=== PATIENT | female | born 1960 | race Caucasian/White ===

== ENCOUNTER 2017-10-09 16:14 | Outpatient (CLI) | payer OTHER | END 2017-10-09 16:15 | disposition short-term general hospital (02) | LOC: EMS 16:14 | PROVIDERS: ATTEND Surgery | DX: M54.9 Dorsalgia, unspecified (principal); R07.81 Pleurodynia | CPT/HCPCS: A0425; A0429 ==

== ENCOUNTER 2017-10-31 20:41 | Outpatient (CLI) | payer OTHER | END 2017-10-31 20:42 | disposition critical access hospital (66) | LOC: EMS 20:41 | PROVIDERS: ATTEND Surgery | DX: R40.4 Transient alteration of awareness (principal) | CPT/HCPCS: A0425; A0427 ==

== ENCOUNTER 2017-10-31 20:56 | Emergency (ER) | payer OTHER ==
[2017-10-31 21:23] LABS: BASOPHILS # (AUTO) 0.1 10^3/uL (0.0-0.1); BASOPHILS % (AUTO) 0.5 %; EOSINOPHILS # (AUTO) 0.1 10^3/uL (0.0-0.7); EOSINOPHILS % (AUTO) 1.1 %; HGB - HEMOGLOBIN 13.9 g/dL (12.0-16.0); LYMPHOCYTES # (AUTO) 3.3 10^3/uL (1.5-3.5); LYMPHOCYTES % (AUTO) 32.6 %; MEAN CORPUSCULAR HEMOGLOBIN 32.8 pg (27.0-31.0); MEAN CORPUSCULAR HGB CONC 34.6 g/dL (32.0-36.0); MEAN CORPUSCULAR VOLUME 94.6 fL (81.0-99.0); MONOCYTES # (AUTO) 0.9 10^3/uL (0.0-1.0); MONOCYTES % (AUTO) 9.2 %; NEUTROPHILS # (AUTO) 5.7 10^3/uL (1.5-6.6); NEUTROPHILS % (AUTO) 56.6 %; PLT - PLATELET COUNT 236 10^3/uL (130-450); RED BLOOD COUNT 4.23 10^6/uL (4.20-5.40); WHITE BLOOD COUNT 10.1 x10^3/uL (4.8-10.8)
[2017-10-31 21:27] LABS: PT - PROTHROMBIN TIME 10.8 secs (9.9-12.6)
[2017-10-31 21:37] LABS: ALBUMIN 3.7 g/dL (3.2-5.5); ALBUMIN/GLOBULIN RATIO 1.2 (1.0-2.2); ALKALINE PHOSPHATASE 84 IU/L (42-121); ALT ALANINE AMINOTRANSFERASE 55 IU/L (10-60); AST ASPARTATE AMINOTRANSFERASE 51 IU/L (10-42); BILIRUBIN,TOTAL 0.5 mg/dL (0.2-1.0); BUN - BLOOD UREA NITROGEN 12 mg/dL (6-20); CALCIUM 8.9 mg/dL (8.5-10.3); CARBON DIOXIDE - CO2 27 mmol/L (21-32); CHLORIDE 100 mmol/L (101-111); CK- CREATINE KINASE 575 IU/L (22-269); CREATININE 0.7 mg/dL (0.4-1.0); GFR - MDRD 87 (>89); GLUCOSE 116 mg/dL (70-100); LIPASE 39 U/L (22-51); SALICYLATE < 6.0 mg/dL; SODIUM 136 mmol/L (135-145); TOTAL PROTEIN 6.7 g/dL (6.7-8.2)
--- NOTE | 2017-10-31 21:38 | CT Report ---
EXAM: CT HEAD EXAM DATE: 10/31/2017 09:27 PM. CLINICAL HISTORY: Altered mental status. COMPARISON: None. TECHNIQUE: Multiaxial CT images were obtained from the foramen magnum to the vertex. Reformats: Coron al. IV contrast: None. In accordance with CT protocol optimization, one or more of the following dose reduction techniques w ere utilized for this exam: automated exposure control, adjustment of mA and/or KV based on patient s ize, or use of iterative reconstructive technique. FINDINGS: Parenchyma: No intraparenchymal hemorrhage. No evidence of mass, midline shift, or CT findings of inf arction. Cross-white differentiation is distinct. Extraaxial Spaces: Normal for age. No subdural or epidural collections identified. Ventricles: Normal in size and position. Sinuses and Orbits: Imaged paranasal sinuses, orbits, and mastoids show no significant abnormality. Bones: No evidence of fracture or calvarial defect. Other: None. IMPRESSION: Normal head CT. [facility] Referring Provider Line: [phone] SITE ID: [id number]
[2017-10-31] MEDS ORDERED: SODIUM CHLORIDE 0.9% 1,000 ML IV ONE (21:50)
[2017-10-31 21:53] LABS: BILIRUBIN,URINE NEGATIVE (NEGATIVE); GLUCOSE, URINE (UA) NEGATIVE (NEGATIVE); KETONES,URINE (UA) NEGATIVE (NEGATIVE); LEUKOCYTE ESTERASE, URINE NEGATIVE (NEGATIVE); NITRITE,URINE NEGATIVE (NEGATIVE); OCCULT BLOOD,URINE NEGATIVE (NEGATIVE); PROTEIN,URINE NEGATIVE (NEGATIVE); UROBILINOGEN,URINE 0.2 (NORMAL) E.U./dL (NORMAL)
[2017-10-31 21:55] LABS: CLARITY,URINE CLEAR (CLEAR)
[2017-10-31 21:57] LABS: MUDS CUTOFF CONCENTRATIONS CUTOFF CONC BELOW:
[2017-10-31 22:17] LABS: AMPHETAMINE SCREEN,URINE NEGATIVE (NEGATIVE); BENZODIAZEPINES SCREEN, URINE POSITIVE (NEGATIVE); COCAINE SCREEN URINE NEGATIVE (NEGATIVE); METHADONE SCREEN, URINE NEGATIVE (NEGATIVE); METHAMPHETAMINES SCREEN, URINE NEGATIVE (NEGATIVE); OPIATE SCREEN, URINE NEGATIVE (NEGATIVE); OXYCODONE SCREEN, URINE NEGATIVE (NEGATIVE); PROPOXYPHENE SCREEN, URINE NEGATIVE (NEGATIVE); TRICYCLIC ANTIDEPRESSANT,URINE NEGATIVE (NEGATIVE)
--- NOTE | 2017-10-31 22:19 | ED Physician Documentation ---
History of Present Illness - Stated complaint Stated Complaint: ALOC - Chief complaint Chief Complaint: Neuro - History obtained from History obtained from: EMS (EMS reports that the pt was acting wierd at the intermediate where she was staying then became unresponsive. unknown if pt took any drugs.) Review of Systems Unable to obtain: Unresponsive PD PAST MEDICAL HISTORY - Past Medical History Psych: Depression Other Past Medical History: Unknown new Hx because Pt. is unresponsive - Past Surgical History Past Surgical History: Yes General: Cholecystectomy - Present Medications Home Medications: Ambulatory Orders Medication Instructions Recorded Confirmed Acetaminophen [Tylenol] 650 mg PO Q6H #30 supp 03/27/13 Diazepam [Valium] 2 mg PO TID PRN #14 tablet 03/27/13 - Allergies Allergies/Adverse Reactions: Allergies Allergy/AdvReac Type Severity Reaction Status Date / Time No Known Drug Allergies Allergy Verified 03/27/13 10:56 - Social History Does the pt smoke?: Yes Smoking Status: Current every day smoker Does the pt drink ETOH?: Yes Does the pt have substance abuse?: Yes PD ED PE NORMAL - Vitals Vital signs reviewed: Yes - General General: No acute distress, Well developed/nourished - HEENT HEENT: Atraumatic, PERRL (pupils 3mm and reactive ), Moist mucous membranes - Cardiac Cardiac: RRR, No murmur - Respiratory Respiratory: No respiratory distress, Clear bilaterally - Abdomen Abdomen: Soft - Derm Derm: Normal color, Warm and dry, No rash PD ED PE EXPANDED - Neuro Neuro: Unresponsive Results - Vitals Vitals: Vital Signs - 24 hr 10/31/17 10/31/17 10/31/17 20:58 21:49 22:21 Temperature 36.8 C 36.6 C Heart Rate 94 92 82 Respiratory 14 18 18 Rate Blood Pressure 139/71 H 123/63 136/67 H O2 Saturation 96 98 99 10/31/17 10/31/17 10/31/17 22:45 23:09 23:35 Temperature Heart Rate 80 60 84 Respiratory 18 19 19 Rate Blood Pressure 129/87 H 117/64 139/84 H O2 Saturation 98 94 99 11/01/17 11/01/17 11/01/17 00:07 01:15 01:30 Temperature 36.7 C Heart Rate 82 88 73 Respiratory 18 18 18 Rate Blood Pressure 135/72 H 124/74 110/60 O2 Saturation 99 98 97 11/01/17 11/01/17 11/01/17 02:00 02:35 03:00 Temperature Heart Rate 70 73 73 Respiratory 18 18 18 Rate Blood Pressure 100/65 117/68 141/82 H O2 Saturation 94 95 97 11/01/17 11/01/17 11/01/17 03:30 04:00 04:32 Temperature 36.6 C Heart Rate 81 98 72 Respiratory 16 16 18 Rate Blood Pressure 142/77 H 126/72 116/65 O2 Saturation 98 100 93 11/01/17 11/01/17 11/01/17 05:00 05:30 06:00 Temperature Heart Rate 76 71 84 Respiratory 16 18 16 Rate Blood Pressure 115/66 140/75 H 115/80 O2 Saturation 93 95 100 11/01/17 06:36 Temperature Heart Rate 68 Respiratory 18 Rate Blood Pressure 138/80 H O2 Saturation 94 Oxygen O2 Source Room air Oxygen Flow Rate 2 - EKG (time done) 2100 Rhythm: NSR [place]: Normal Intervals: Normal [place], QRS normal QRS: Normal Ischemia: Normal ST segments - Labs Labs: Laboratory Tests 10/31/17 10/31/17 10/31/17 20:09 20:09 20:09 WBC 10.1 RBC 4.23 Hgb 13.9 Hct 40.1 MCV 94.6 MCH 32.8 H MCHC 34.6 RDW 13.0 Plt Count 236 MPV 7.0 L Neut # 5.7 Lymph # 3.3 [place] # 0.9 Eos # 0.1 Baso # 0.1 Absolute Nucleated RBC 0.00 Nucleated RBC % 0.0 PT 10.8 INR 1.0 APTT 25.2 Sodium 136 Potassium 3.8 Chloride 100 L Carbon Dioxide 27 Anion Gap 9.0 BUN 12 Creatinine 0.7 Estimated GFR (MDRD) 87 L Glucose 116 H Lactic Acid Calcium 8.9 Total Bilirubin 0.5 AST 51 H ALT 55 Alkaline Phosphatase 84 Total Creatine Kinase 575 H Troponin I Total Protein 6.7 Albumin 3.7 Globulin 3.0 Albumin/Globulin Ratio 1.2 Lipase 39 Urine Color Urine Clarity Urine pH Ur Specific [place] Urine Protein Urine Glucose (UA) Urine Ketones Urine Occult Blood Urine Nitrite Urine Bilirubin Urine Urobilinogen Ur Leukocyte Esterase Ur Microscopic Review Urine Culture Comments Salicylates < 6.0 Urine Opiates Screen Ur Oxycodone Screen Urine Methadone Screen Ur Propoxyphene Screen Acetaminophen < 10 L Ur Barbiturates Screen Ur Tricyclics Screen Ur Phencyclidine Scrn Ur Amphetamine Screen U Methamphetamines Scrn U Benzodiazepines Scrn Urine Cocaine Screen U Cannabinoids Screen Ethyl Alcohol 10/31/17 10/31/17 10/31/17 20:09 20:09 20:15 WBC RBC Hgb Hct MCV MCH MCHC RDW Plt Count MPV Neut # Lymph # [place] # Eos # Baso # Absolute Nucleated RBC Nucleated RBC % PT INR APTT Sodium Potassium Chloride Carbon Dioxide Anion Gap BUN Creatinine Estimated GFR (MDRD) Glucose Lactic Acid 0.8 Calcium Total Bilirubin AST ALT Alkaline Phosphatase Total Creatine Kinase Troponin I < 0.04 Total Protein Albumin Globulin Albumin/Globulin Ratio Lipase Urine Color Urine Clarity Urine pH Ur Specific [place] Urine Protein Urine Glucose (UA) Urine Ketones Urine Occult Blood Urine Nitrite Urine Bilirubin Urine Urobilinogen Ur Leukocyte Esterase Ur Microscopic Review Urine Culture Comments Salicylates Urine Opiates Screen Ur Oxycodone Screen Urine Methadone Screen Ur Propoxyphene Screen Acetaminophen Ur Barbiturates Screen Ur Tricyclics Screen Ur Phencyclidine Scrn Ur Amphetamine Screen U Methamphetamines Scrn U Benzodiazepines Scrn Urine Cocaine Screen U Cannabinoids Screen Ethyl Alcohol < 5.0 10/31/17 10/31/17 21:45 21:55 WBC RBC Hgb Hct MCV MCH MCHC RDW Plt Count MPV Neut # Lymph # [place] # Eos # Baso # Absolute Nucleated RBC Nucleated RBC % PT INR APTT Sodium Potassium Chloride Carbon Dioxide Anion Gap BUN Creatinine Estimated GFR (MDRD) Glucose Lactic Acid Calcium Total Bilirubin AST ALT Alkaline Phosphatase Total Creatine Kinase Troponin I Total Protein Albumin Globulin Albumin/Globulin Ratio Lipase Urine Color YELLOW Urine Clarity CLEAR Urine pH 6.0 Ur Specific [place] 1.015 Urine Protein NEGATIVE Urine Glucose (UA) NEGATIVE Urine Ketones NEGATIVE Urine Occult Blood NEGATIVE Urine Nitrite NEGATIVE Urine Bilirubin NEGATIVE Urine Urobilinogen 0.2 (NORMAL) Ur Leukocyte Esterase NEGATIVE Ur Microscopic Review NOT INDICATED Urine Culture Comments NOT INDICATED Salicylates Urine Opiates Screen NEGATIVE Ur Oxycodone Screen NEGATIVE Urine Methadone Screen NEGATIVE Ur Propoxyphene Screen NEGATIVE Acetaminophen Ur Barbiturates Screen NEGATIVE Ur Tricyclics Screen NEGATIVE Ur Phencyclidine Scrn NEGATIVE Ur Amphetamine Screen NEGATIVE U Methamphetamines Scrn NEGATIVE U Benzodiazepines Scrn POSITIVE H Urine Cocaine Screen NEGATIVE U Cannabinoids Screen POSITIVE H Ethyl Alcohol - Rads (name of study) Head CT Radiology: Final report received (Head CT neg), EMP read contemporaneously PD MEDICAL DECISION MAKING - ED course Complexity details: reviewed results, re-evaluated patient, considered differential ED course: pt unresponsive on arrival but maintaining airway. no signs of trauma. pt did not respond to sternal rub but did pull eyes closed with light shined into them. She also responded to ammonia placed under her nose. Head CT neg. CK elevated so fluids given. No signs of seizure. Pt remained stable in the ER. one time she woke up and became combative and had to be sedated but since then she has remained calm and her restraints have been removed. Vitals have been stable. Pt did wake this AM and stated that she did not remember taking any drugs and was able to use the bedside toilet but was very unsteady on her feet and still somewhat confused. Will continue to watch in the. Turned over to the day ER provider at 0700 for further observation and anticipated discharge when she becomes more responsive. Departure - Departure Clinical Impression: Altered mental status Condition: Stable Instructions: Addiction Get Help, Addiction Recovery Follow-Up: primary, care provider [Other]
[2017-10-31 22:29] LABS: ACETAMINOPHEN < 10 ug/mL (10-30)
[2017-11-01] MEDS ORDERED: diphenhydrAMINE INJ 50 MG/ML VIAL IM STA (00:40)
[2017-11-01] MEDS ORDERED: HALOPERIDOL 5 MG/ML VIAL IM STA (00:40)
[2017-11-01] MEDS ORDERED: HALOPERIDOL 5 MG/ML VIAL ONE (00:46)
[2017-11-01] MEDS ORDERED: LORazepam 2 MG/ML VIAL ONE (00:46)
--- NOTE | 2017-11-01 09:55 | XRAY Report ---
EXAM: LEFT WRIST RADIOGRAPHY EXAM DATE: 11/01/2017 09:36 AM. CLINICAL HISTORY: Fall injury with wrist pain/swelling. COMPARISON: None. TECHNIQUE: 3 views. The technologist notes patient was unable to cooperate with performing all views. FINDINGS: Bones: Oblique film is concerning for a longitudinal intra-articular distal radial fracture with 1. 5 mm articular gap. This may arise along the volar aspect of distal radius on lateral film. Joints: Normal. No subluxations. Soft Tissues: Mild soft tissue swelling. IMPRESSION: 1. Oblique film is concerning for a longitudinal intra-articular distal radial fracture with 1.5 mm a rticular gap. This may arise along the volar aspect of distal radius on lateral film. Suggest CT to anais CAZARES Referring Provider Line: [phone] SITE ID: [id number]
--- NOTE | 2017-11-01 18:48 | ED Physician Documentation ---
ED Addendum - Addendum Addendum: 11/01/17 18:45 Upon assuming care at change of shift, the patient was sleeping. Her oxygenation was adequate. She was arousable to tactile stimulus to the point of opening her eyes but then would fall back asleep. She was allowed to sleep longer in the ER. And proved and awoke enough to be able to be going to the bathroom though still a bit sleepy. Social work Michelle did talk with her and was concerned about her altered mentation and got information from the residential she is staying at about her acting bizarrely. 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 Social work called [facility] to come evaluate. During that time the patient was even more alert and conversant. She does not seem to be in grave disability and was not suicidal. She would like to get help at a psychiatric facility and so social work was given back the mission of finding placement for the patient. Social work was unable to find a bed for the patient in this timeframe. The patient is comfortable staying here this evening. She does not have a good place to be staying otherwise. Social work will resume finding placement for her tomorrow. She is calm and cooperative and without any distress here at this time.
--- NOTE | 2017-11-02 07:50 | ED Physician Documentation ---
History of Present Illness - Stated complaint Stated Complaint: ALOC - Chief complaint Chief Complaint: Neuro PD PAST MEDICAL HISTORY - Past Medical History Psych: Depression Other Past Medical History: Unknown new Hx because Pt. is unresponsive - Past Surgical History Past Surgical History: Yes General: Cholecystectomy - Present Medications Home Medications: Ambulatory Orders Medication Instructions Recorded Confirmed Acetaminophen [Tylenol] 650 mg PO Q6H #30 supp 03/27/13 Diazepam [Valium] 2 mg PO TID PRN #14 tablet 03/27/13 - Allergies Allergies/Adverse Reactions: Allergies Allergy/AdvReac Type Severity Reaction Status Date / Time No Known Drug Allergies Allergy Verified 03/27/13 10:56 - Social History Does the pt smoke?: Yes Smoking Status: Current every day smoker Does the pt drink ETOH?: Yes Does the pt have substance abuse?: Yes Results - Vitals Vitals: Vital Signs - 24 hr 11/01/17 11/02/17 11/02/17 19:21 07:46 12:10 Temperature 38.1 C H 37.7 C H 36.8 C Heart Rate 80 60 72 Respiratory 16 18 12 Rate Blood Pressure 121/72 135/89 H 129/90 H O2 Saturation 97 100 99 Oxygen O2 Source Room air Oxygen Flow Rate 2 - Labs Labs: Laboratory Tests 10/31/17 10/31/17 10/31/17 20:09 20:09 20:09 WBC 10.1 RBC 4.23 Hgb 13.9 Hct 40.1 MCV 94.6 MCH 32.8 H MCHC 34.6 RDW 13.0 Plt Count 236 MPV 7.0 L Neut # 5.7 Lymph # 3.3 [place] # 0.9 Eos # 0.1 Baso # 0.1 Absolute Nucleated RBC 0.00 Nucleated RBC % 0.0 PT 10.8 INR 1.0 APTT 25.2 Sodium 136 Potassium 3.8 Chloride 100 L Carbon Dioxide 27 Anion Gap 9.0 BUN 12 Creatinine 0.7 Estimated GFR (MDRD) 87 L Glucose 116 H Lactic Acid Calcium 8.9 Total Bilirubin 0.5 AST 51 H ALT 55 Alkaline Phosphatase 84 Total Creatine Kinase 575 H Troponin I Total Protein 6.7 Albumin 3.7 Globulin 3.0 Albumin/Globulin Ratio 1.2 Lipase 39 Urine Color Urine Clarity Urine pH Ur Specific [place] Urine Protein Urine Glucose (UA) Urine Ketones Urine Occult Blood Urine Nitrite Urine Bilirubin Urine Urobilinogen Ur Leukocyte Esterase Ur Microscopic Review Urine Culture Comments Salicylates < 6.0 Urine Opiates Screen Ur Oxycodone Screen Urine Methadone Screen Ur Propoxyphene Screen Acetaminophen < 10 L Ur Barbiturates Screen Ur Tricyclics Screen Ur Phencyclidine Scrn Ur Amphetamine Screen U Methamphetamines Scrn U Benzodiazepines Scrn Urine Cocaine Screen U Cannabinoids Screen Ethyl Alcohol 10/31/17 10/31/17 10/31/17 20:09 20:09 20:15 WBC RBC Hgb Hct MCV MCH MCHC RDW Plt Count MPV Neut # Lymph # [place] # Eos # Baso # Absolute Nucleated RBC Nucleated RBC % PT INR APTT Sodium Potassium Chloride Carbon Dioxide Anion Gap BUN Creatinine Estimated GFR (MDRD) Glucose Lactic Acid 0.8 Calcium Total Bilirubin AST ALT Alkaline Phosphatase Total Creatine Kinase Troponin I < 0.04 Total Protein Albumin Globulin Albumin/Globulin Ratio Lipase Urine Color Urine Clarity Urine pH Ur Specific [place] Urine Protein Urine Glucose (UA) Urine Ketones Urine Occult Blood Urine Nitrite Urine Bilirubin Urine Urobilinogen Ur Leukocyte Esterase Ur Microscopic Review Urine Culture Comments Salicylates Urine Opiates Screen Ur Oxycodone Screen Urine Methadone Screen Ur Propoxyphene Screen Acetaminophen Ur Barbiturates Screen Ur Tricyclics Screen Ur Phencyclidine Scrn Ur Amphetamine Screen U Methamphetamines Scrn U Benzodiazepines Scrn Urine Cocaine Screen U Cannabinoids Screen Ethyl Alcohol < 5.0 10/31/17 10/31/17 11/02/17 21:45 21:55 07:15 WBC RBC Hgb Hct MCV MCH MCHC RDW Plt Count MPV Neut # Lymph # [place] # Eos # Baso # Absolute Nucleated RBC Nucleated RBC % PT INR APTT Sodium Potassium Chloride Carbon Dioxide Anion Gap BUN Creatinine Estimated GFR (MDRD) Glucose Lactic Acid Calcium Total Bilirubin AST ALT Alkaline Phosphatase Total Creatine Kinase 674 H Troponin I Total Protein Albumin Globulin Albumin/Globulin Ratio Lipase Urine Color YELLOW Urine Clarity CLEAR Urine pH 6.0 Ur Specific [place] 1.015 Urine Protein NEGATIVE Urine Glucose (UA) NEGATIVE Urine Ketones NEGATIVE Urine Occult Blood NEGATIVE Urine Nitrite NEGATIVE Urine Bilirubin NEGATIVE Urine Urobilinogen 0.2 (NORMAL) Ur Leukocyte Esterase NEGATIVE Ur Microscopic Review NOT INDICATED Urine Culture Comments NOT INDICATED Salicylates Urine Opiates Screen NEGATIVE Ur Oxycodone Screen NEGATIVE Urine Methadone Screen NEGATIVE Ur Propoxyphene Screen NEGATIVE Acetaminophen Ur Barbiturates Screen NEGATIVE Ur Tricyclics Screen NEGATIVE Ur Phencyclidine Scrn NEGATIVE Ur Amphetamine Screen NEGATIVE U Methamphetamines Scrn NEGATIVE U Benzodiazepines Scrn POSITIVE H Urine Cocaine Screen NEGATIVE U Cannabinoids Screen POSITIVE H Ethyl Alcohol 11/02/17 11/02/17 10:23 14:03 WBC RBC Hgb Hct MCV MCH MCHC RDW Plt Count MPV Neut # Lymph # [place] # Eos # Baso # Absolute Nucleated RBC Nucleated RBC % PT INR APTT Sodium Potassium Chloride Carbon Dioxide Anion Gap BUN Creatinine Estimated GFR (MDRD) Glucose Lactic Acid Calcium Total Bilirubin AST ALT Alkaline Phosphatase Total Creatine Kinase 678 H 661 H Troponin I Total Protein Albumin Globulin Albumin/Globulin Ratio Lipase Urine Color Urine Clarity Urine pH Ur Specific [place] Urine Protein Urine Glucose (UA) Urine Ketones Urine Occult Blood Urine Nitrite Urine Bilirubin Urine Urobilinogen Ur Leukocyte Esterase Ur Microscopic Review Urine Culture Comments Salicylates Urine Opiates Screen Ur Oxycodone Screen Urine Methadone Screen Ur Propoxyphene Screen Acetaminophen Ur Barbiturates Screen Ur Tricyclics Screen Ur Phencyclidine Scrn Ur Amphetamine Screen U Methamphetamines Scrn U Benzodiazepines Scrn Urine Cocaine Screen U Cannabinoids Screen Ethyl Alcohol - Rads (name of study) wrist Radiology: See rad report (intrarticular radius fx) knee Radiology: See rad report (OA and effusion, no fx) PD MEDICAL DECISION MAKING - ED course ED course: assumed care 715 AM 11/02/17 pt has been boarding in ED for 2 days pending mental health placement per EMR seems pt was has been [facility] and was brought in by EMS AMS/unresponsive EMS report from 3 days ago still not available for me to review per notes, [facility] called hospital to report pt has been intermittently staying at the [facility], sometimes taken there by law enforcement , has been acting bizarre and paranoid for several days, and was found hiding under a plastic chair so EMS was called and when EMS arrived pt became unresponsive, notes also indicate pt has a hx of mental health and LRO etc EMS report from 10/09 indicates pt had erratic behavior then as well and was tangential, belligerent and spiritual during EMS encounter at that time pt has not been seen here at [facility] since 2012 per EMP notes pt arrived unresponsive, no response to narcan, tox + THC and benzo, CTH neg, labs nl except mild elev CK she was observed and improved, became more responsive but still with abnormal mentation so felt to be gravely disable so DCR was dispatched but by the time DCR saw the pt she had improved enough that DCR felt pt was not gravely disable and so turned efforts to place pt back over to SW but by that time of day SW could not get pt placed before end of her shift so pt stayed another night per NN seems pt had a temp of 38.1 last night and EMP was not notified, asked for temp to be rechecked and pt is now afebrile s intervention reviewed her labs, all fine except mild elev CK (likely 2/2 being unresponsive and imobile) and tox + THC and benzo pt preferred to drink lots of fluids vs get IV NS for elevated CK - drank 2 L and level rechecked - seems to have stabilized not rising - not severe enough to merit admit for rhabdo - would dc this with rec to drink fluids and see PMD for recheck next working day so feel pt clear for inpt mental health - per SW receiving facility wants to see level dropping so ordered another I went to see the pt at 730 AM, she is awake alert pleasant, she denies SAGE CP AP , has some L wrist and right knee pain s/p falling, she denies any recent illness ( no reported fever cough NVD etc), she states that she has had a similar rxn when she stopped smoking THC in the past and she thinks maybe that is what caused her sx, she states she took a valium but denies any other drug use, exam VS noted and pt is afebrile, head atraumatic, PERRL, neck supple s meningeal signs, RRR< CTAB s ronchi, abd soft NT, L wrist slightly swollen and mild TTP dorsal and radial, MSV intact, some aged abrasions but no erythema or warmth, R knee large crusted abrasions, no deformity or sig swelling, no ACL PCL MCL LCL lacity, MSV intact as well, ordered rpt CK and xray knee and wrist, awaiting SW to 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 wrist xrays (pt did not recall) _ I reviewed the read, - she has an intrarticular fx - will splint in ER and refer to ortho - pt refused fiberglass splint but accepted velcro after hr and hr of attempts by SW to place pt in detox or SWwere unsuccessful mostly because pt has an elevated CPK - which is not surprising given hx of being unresponsive for extended period of time and having an arm fx - receiving facilities told SW they would not accept pt unless or CK was zero which is of course not going to happen since nl is up to 270 - i asked to speak to provider at receiving facilities but am advised they do not wish to discuss this issue by now pt is basically better she is awake alert ambulatory, denies SI HI does not appear to be psychotic, is cheerful anc cooperative, is going back to [place] where she will be around other people who would notice if she got worse and she promises to return if worse, will need to call [facility] next week to establish care and see her PMD Dr Hassan for rpt CK level Departure - Departure Disposition: Home, Self Care Clinical Impression: Elevated CK Altered mental status Qualifiers: Altered mental status type: transient alteration of awareness Qualified Code(s) : R40.4 - Transient alteration of awareness Wrist fracture, left Qualifiers: Encounter type: initial encounter Fracture type: closed Qualified Code(s): S62.102A - Fracture of unspecified carpal bone, left wrist, initial encounter for closed fracture Condition: Stable Instructions: ED Splint Care Fiberglass, ED Fx Wrist General Follow-Up: primary, care provider [Other] [facility] [Provider Group] KITTY HASSAN [Physician No Access] - [facility] [Provider Group] Comments: Social work was not able to get you into a voluntary mental health or detox facility and DCR did not feel you needed involuntary placement And by now all your symptoms seem better anyway Please drink lots of fluids and follow up with Dr Ward next week to recheck your CPK level The xray shows a broken wrist - please wear your splint and use ice elevation and tylenol as needed for pain Return if worse in any way over the holiday - we are always open And please call [facility] Sunday to schedule follow outpatient mental health follow up And call orthopedics to follow up about your broken arm and knee
--- NOTE | 2017-11-02 09:14 | XRAY Report ---
EXAM: RIGHT KNEE RADIOGRAPHY EXAM DATE: 11/02/2017 08:57 AM. CLINICAL HISTORY: Fall pain. COMPARISON: None. TECHNIQUE: 3 views. FINDINGS: Bones: Normal. No fractures or bone lesions. Joints: There are mild tricompartmental degenerative changes. Soft Tissues: There is an effusion. IMPRESSION: Mild tricompartmental osteoarthritis and effusion. [facility] Referring Provider Line: [phone] SITE ID: [id number]
[2017-11-02] MEDS ORDERED: SODIUM CHLORIDE 0.9% 2,000 ML IV ONE (14:58)
[2017-11-02] MEDS: SODIUM CHLORIDE 0.9% 1,000 ML IV ONE ×2 (18:08→19:03)
[2017-11-02 18:50] VITALS: BP 154/84
== END 2017-11-02 19:05 | disposition home or self-care (01) ==
LOC: EDUNIT# → ED 20:56
DX: R40.4 Transient alteration of awareness (principal); R74.8 Abnormal levels of other serum enzymes; S52.572A Other intraarticular fracture of lower end of left radius, initial encounter for closed fracture; S80.211A Abrasion, right knee, initial encounter; W19.XXXA Unspecified fall, initial encounter; Z59.0 Homelessness; F32.3 Major depressive disorder, single episode, severe with psychotic features; F17.200 Nicotine dependence, unspecified, uncomplicated
CPT/HCPCS: 36415; 70450; 73110; 73562; 80053; 80306; 80307; 80320; 80329; 81003; 82550; 83605; 83690; 84484; 85025; 85610; 85730; 93005; 96360; 96361; 96372; 99285; J2060; 81001; 87086

== ENCOUNTER 2017-11-20 18:04 | Outpatient (CLI) | payer OTHER | END 2017-11-20 18:05 | disposition critical access hospital (66) | LOC: EMS 18:04 | PROVIDERS: ATTEND Surgery | DX: R45.851 Suicidal ideations (principal) | CPT/HCPCS: A0425; A0429 ==

== ENCOUNTER 2017-11-20 18:22 | Emergency (ER) | payer OTHER ==
[2017-11-20 18:38] LABS: MUDS CUTOFF CONCENTRATIONS CUTOFF CONC BELOW:
[2017-11-20 18:41] LABS: BILIRUBIN,URINE NEGATIVE (NEGATIVE); GLUCOSE, URINE (UA) NEGATIVE (NEGATIVE); KETONES,URINE (UA) NEGATIVE (NEGATIVE); LEUKOCYTE ESTERASE, URINE NEGATIVE (NEGATIVE); NITRITE,URINE NEGATIVE (NEGATIVE); OCCULT BLOOD,URINE NEGATIVE (NEGATIVE); PH,URINE 6.5 PH (5.0-7.5); PROTEIN,URINE NEGATIVE (NEGATIVE); UROBILINOGEN,URINE 0.2 (NORMAL) E.U./dL (NORMAL)
[2017-11-20 18:44] LABS: CLARITY,URINE CLEAR (CLEAR)
[2017-11-20 18:47] LABS: BASOPHILS % (AUTO) 0.4 %; EOSINOPHILS # (AUTO) 0.1 10^3/uL (0.0-0.7); HGB - HEMOGLOBIN 14.6 g/dL (12.0-16.0); LYMPHOCYTES # (AUTO) 1.9 10^3/uL (1.5-3.5); MEAN CORPUSCULAR HGB CONC 34.3 g/dL (32.0-36.0); MEAN CORPUSCULAR VOLUME 96.1 fL (81.0-99.0); MEAN PLATELET VOLUME 6.7 fL (7.9-10.8); MONOCYTES # (AUTO) 0.5 10^3/uL (0.0-1.0); MONOCYTES % (AUTO) 7.5 %; NEUTROPHILS % (AUTO) 62.1 %; PLT - PLATELET COUNT 257 10^3/uL (130-450); RED BLOOD COUNT 4.41 10^6/uL (4.20-5.40); RED CELL DISTRIBUTION WIDTH 13.2 % (12.0-15.0); WHITE BLOOD COUNT 6.4 x10^3/uL (4.8-10.8)
--- NOTE | 2017-11-20 18:48 | ED Physician Documentation ---
PD HPI MHE - Stated complaint Stated Complaint: SI - Chief complaint Chief Complaint: MHE - History obtained from History obtained from: Patient, EMS - History of Present Illness Primary symptom: Suicidal ideation Timing - onset: Chronic Pain level max: 0 Pain level now: 0 Contributing factors: Other (states has nowhere to live and that nobody wants her) Similar symptoms before: Diagnosis (depression) - Additional information Additional information: states she is going to walk to [place] and snuggle a polar bear or jump out of an airplane. Doesn't have access to an airplane. She states she is just cold and was kicked out of the [facility] for bad behavior. States not SI at this time or HI. Review of Systems Ten Systems: 10 systems reviewed and negative Constitutional: denies: Fever, Chills Nose: denies: Rhinorrhea / runny nose, Congestion Throat: denies: Sore throat Cardiac: denies: Chest pain / pressure Respiratory: denies: Cough GI: denies: Nausea, Vomiting PD PAST MEDICAL HISTORY - Past Medical History Past Medical History: Yes Psych: Depression - Past Surgical History Past Surgical History: Yes General: Cholecystectomy - Present Medications Home Medications: Ambulatory Orders Medication Instructions Recorded Confirmed Acetaminophen [Tylenol] 650 mg PO Q6H #30 supp 03/27/13 Diazepam [Valium] 2 mg PO TID PRN #14 tablet 03/27/13 - Allergies Allergies/Adverse Reactions: Allergies Allergy/AdvReac Type Severity Reaction Status Date / Time No Known Drug Allergies Allergy Verified 03/27/13 10:56 - Social History Does the pt smoke?: Yes Smoking Status: Current every day smoker Does the pt drink ETOH?: Yes Does the pt have substance abuse?: Yes PD ED PE NORMAL - Vitals Vital signs reviewed: Yes - General General: Alert and oriented X 3, No acute distress - HEENT HEENT: Moist mucous membranes - Neck Neck: Supple, no meningeal sign - Cardiac Cardiac: RRR - Respiratory Respiratory: No respiratory distress, Clear bilaterally - Abdomen Abdomen: Soft, Non tender, Non distended - Derm Derm: Warm and dry, No rash - Extremities Extremities: Normal ROM s pain - Neuro Neuro: Alert and oriented X 3 - Psych Psych: Normal mood, Normal affect Results - Vitals Vitals: Vital Signs - 24 hr 11/20/17 11/20/17 18:26 20:54 Temperature 35.5 C L Heart Rate 91 89 Respiratory 20 18 Rate Blood Pressure 148/102 H 123/58 L O2 Saturation 100 96 Oxygen O2 Source Room air - Labs Labs: Laboratory Tests 11/20/17 11/20/17 11/20/17 18:33 18:38 18:38 WBC 6.4 RBC 4.41 Hgb 14.6 Hct 42.4 MCV 96.1 MCH 33.0 H MCHC 34.3 RDW 13.2 Plt Count 257 MPV 6.7 L Neut # 4.0 Lymph # 1.9 [place] # 0.5 Eos # 0.1 Baso # 0.0 Absolute Nucleated RBC 0.00 Nucleated RBC % 0.0 Sodium 135 Potassium 3.4 L Chloride 100 L Carbon Dioxide 27 Anion Gap 8.0 BUN 11 Creatinine 0.6 Estimated GFR (MDRD) 103 Glucose 137 H Calcium 9.0 Total Bilirubin 0.5 AST 42 ALT 46 Alkaline Phosphatase 95 Total Protein 7.0 Albumin 3.6 Globulin 3.4 Albumin/Globulin Ratio 1.1 Lipase 27 Urine Color YELLOW Urine Clarity CLEAR Urine pH 6.5 Ur Specific [place] <=1.005 Urine Protein NEGATIVE Urine Glucose (UA) NEGATIVE Urine Ketones NEGATIVE Urine Occult Blood NEGATIVE Urine Nitrite NEGATIVE Urine Bilirubin NEGATIVE Urine Urobilinogen 0.2 (NORMAL) Ur Leukocyte Esterase NEGATIVE Ur Microscopic Review NOT INDICATED Urine Culture Comments NOT INDICATED Salicylates < 6.0 Urine Opiates Screen NEGATIVE Ur Oxycodone Screen NEGATIVE Urine Methadone Screen NEGATIVE Ur Propoxyphene Screen NEGATIVE Acetaminophen < 10 L Ur Barbiturates Screen NEGATIVE Ur Tricyclics Screen NEGATIVE Ur Phencyclidine Scrn NEGATIVE Ur Amphetamine Screen NEGATIVE U Methamphetamines Scrn NEGATIVE U Benzodiazepines Scrn NEGATIVE Urine Cocaine Screen NEGATIVE U Cannabinoids Screen POSITIVE H Ethyl Alcohol < 5.0 PD MEDICAL DECISION MAKING - ED course Complexity details: reviewed results, re-evaluated patient, considered differential, d/w patient, d/w [employer] sales consultant ED course: Patient is a 57-year-old female who presents to the emergency department with reported vague suicidal ideation earlier tonight. Denies being suicidal to me. She also denies being suicidal to the secondary social studies teacher. She states she does want somewhere to sleep. It was offered to allow her to sleep in the quiet room , however patient became belligerent and angry towards staff, therefore she was escorted out of the emergency department. This document was made in part using voice recognition software. While efforts are made to proofread this document, sound alike and grammatical errors may occur. Departure - Departure Disposition: 01 Home, Self Care Clinical Impression: Depression Qualifiers: Depression Type: unspecified Qualified Code(s): F32.9 - Major depressive disorder, single episode, unspecified Condition: Good Instructions: ED Depression Follow-Up: your,doctor in 1 week [Other] Comments: Crisis Line and is available to talk to someone [email or web address] is also available to chat with someone online if you prefer. There are also many resources on this website and apps for your phone to help with your mental health Return if you worsen. Discharge Date/Time: 11/20/17 22:00
[2017-11-20 18:52] LABS: AMPHETAMINE SCREEN,URINE NEGATIVE (NEGATIVE); BENZODIAZEPINES SCREEN, URINE NEGATIVE (NEGATIVE); COCAINE SCREEN URINE NEGATIVE (NEGATIVE); METHADONE SCREEN, URINE NEGATIVE (NEGATIVE); METHAMPHETAMINES SCREEN, URINE NEGATIVE (NEGATIVE); OPIATE SCREEN, URINE NEGATIVE (NEGATIVE); OXYCODONE SCREEN, URINE NEGATIVE (NEGATIVE); PROPOXYPHENE SCREEN, URINE NEGATIVE (NEGATIVE); TRICYCLIC ANTIDEPRESSANT,URINE NEGATIVE (NEGATIVE)
[2017-11-20 19:03] LABS: ALBUMIN 3.6 g/dL (3.2-5.5); ALBUMIN/GLOBULIN RATIO 1.1 (1.0-2.2); ALKALINE PHOSPHATASE 95 IU/L (42-121); ALT ALANINE AMINOTRANSFERASE 46 IU/L (10-60); AST ASPARTATE AMINOTRANSFERASE 42 IU/L (10-42); BILIRUBIN,TOTAL 0.5 mg/dL (0.2-1.0); BUN - BLOOD UREA NITROGEN 11 mg/dL (6-20); CARBON DIOXIDE - CO2 27 mmol/L (21-32); CHLORIDE 100 mmol/L (101-111); CREATININE 0.6 mg/dL (0.4-1.0); GFR - MDRD 103 (>89); GLUCOSE 137 mg/dL (70-100); LIPASE 27 U/L (22-51); SALICYLATE < 6.0 mg/dL; SODIUM 135 mmol/L (135-145)
[2017-11-20 19:04] LABS: ACETAMINOPHEN < 10 ug/mL (10-30)
[2017-11-20 20:57] VITALS: BP 123/58
== END 2017-11-20 22:00 | disposition home or self-care (01) ==
LOC: EDUNIT# → ED 18:22
DX: F32.9 Major depressive disorder, single episode, unspecified (principal); F17.200 Nicotine dependence, unspecified, uncomplicated
CPT/HCPCS: 36415; 80053; 80306; 80307; 80320; 80329; 81001; 81003; 83690; 85025; 87086; 99283

== ENCOUNTER 2018-01-07 16:12 | Outpatient (CLI) | payer OTHER, MEDICAID | END 2018-01-07 16:13 | disposition critical access hospital (66) | LOC: EMS 16:12 | PROVIDERS: ATTEND Surgery | DX: R45.851 Suicidal ideations (principal); R46.89 Other symptoms and signs involving appearance and behavior | CPT/HCPCS: A0425; A0429 ==

== ENCOUNTER 2018-01-07 16:34 | Emergency (ER) | payer OTHER, MEDICAID ==
--- NOTE | 2018-01-07 17:09 | ED Physician Documentation ---
PD HPI MHE - Stated complaint Stated Complaint: MHE - Chief complaint Chief Complaint: MHE - History obtained from History obtained from: Patient, Family - History of Present Illness Primary symptom: Psychosis. No: Suicidal ideation, Suicide attempt, Aggressive behavior Timing - onset: How many days ago (several days of worsening. Has been in shelters (currently homeless) and was having thought process problems. Her daughter, who lives in [place], came here when she heard her mother was acting strangely, as has done this prior to full psychosis.) Contributing factors: No: Substance abuse - ETOH, Substance abuse - drugs Similar symptoms before: Diagnosis (psychosis) Recently seen: Not recently seen Review of Systems Constitutional: denies: Fever Nose: denies: Rhinorrhea / runny nose, Congestion Throat: denies: Sore throat Cardiac: denies: Chest pain / pressure Respiratory: denies: Dyspnea, Cough GI: denies: Abdominal Pain, Vomiting, Diarrhea : denies: Dysuria Skin: denies: Rash, Abrasion (s), Laceration (s) Musculoskeletal: denies: Neck pain, Back pain Neurologic: denies: Near syncope Psychiatric: denies: Suicidal PD PAST MEDICAL HISTORY - Past Medical History Cardiovascular: None Respiratory: None Neuro: None Endocrine/Autoimmune: None Psych: Depression, Schizophrenia (possibly, not clear the exact diagnosis. ) - Past Surgical History Past Surgical History: Yes General: Cholecystectomy - Present Medications Home Medications: Ambulatory Orders Medication Instructions Recorded Confirmed No Known Home Medications [No 01/07/18 01/07/18 Known Home Medications] - Allergies Allergies/Adverse Reactions: Allergies Allergy/AdvReac Type Severity Reaction Status Date / Time No Known Drug Allergies Allergy Verified 01/07/18 16:44 - Social History Does the pt smoke?: Yes Smoking Status: Current every day smoker Does the pt drink ETOH?: Yes Does the pt have substance abuse?: Yes PD ED PE NORMAL - Vitals Vital signs reviewed: Yes - General General: Alert and oriented X 3, No acute distress (at first interview with her , she is not distressed but is smiling and happy, but does seem to be responding to stimuli not clearly visible (presume internal stimuli) with smiling and laughing. She will answer some questions directly but mostly has very tangential thought process and then loose associations.), Well developed/ nourished - HEENT HEENT: Atraumatic, Other (disheveled appearance, poorly applied makeup. ) - Neck Neck: Supple, no meningeal sign, No adenopathy - Cardiac Cardiac: RRR, No murmur - Respiratory Respiratory: Clear bilaterally - Abdomen Abdomen: Soft, Non tender - Back Back: No CVA TTP - Derm Derm: Normal color, Warm and dry - Neuro Neuro: Alert and oriented X 3, No motor deficit - Psych Psych: No: Normal affect (somewhat elated and laughing, smiles often. ) Results - Vitals Vitals: Vital Signs - 24 hr 01/07/18 01/07/18 16:45 18:26 Heart Rate 86 82 Respiratory 18 16 Rate Blood Pressure 153/87 H 128/71 O2 Saturation 100 100 Oxygen O2 Source Room air - Labs Labs: Laboratory Tests 01/07/18 01/07/18 01/07/18 17:45 17:55 17:55 WBC 4.2 L RBC 4.87 Hgb 15.6 Hct 45.2 MCV 92.9 MCH 32.1 H MCHC 34.6 RDW 12.9 Plt Count 178 MPV 6.8 L Neut # 2.6 Lymph # 1.1 L [place] # 0.4 Eos # 0.0 Baso # 0.0 Absolute Nucleated RBC 0.00 Nucleated RBC % 0.0 Sodium 131 L Potassium 3.8 Chloride 95 L Carbon Dioxide 27 Anion Gap 9.0 BUN 13 Creatinine 0.6 Estimated GFR (MDRD) 103 Glucose 125 H Calcium 9.2 Total Bilirubin 0.4 AST 40 ALT 44 Alkaline Phosphatase 102 Total Protein 7.9 Albumin 4.3 Globulin 3.6 Albumin/Globulin Ratio 1.2 Lipase 17 L TSH Urine Color YELLOW Urine Clarity CLEAR Urine pH 7.0 Ur Specific [place] 1.010 Urine Protein NEGATIVE Urine Glucose (UA) NEGATIVE Urine Ketones NEGATIVE Urine Occult Blood NEGATIVE Urine Nitrite NEGATIVE Urine Bilirubin NEGATIVE Urine Urobilinogen 0.2 (NORMAL) Ur Leukocyte Esterase NEGATIVE Ur Microscopic Review NOT INDICATED Urine Culture Comments NOT INDICATED Salicylates < 6.0 Urine Opiates Screen NEGATIVE Ur Oxycodone Screen NEGATIVE Urine Methadone Screen NEGATIVE Ur Propoxyphene Screen NEGATIVE Acetaminophen < 10 L Ur Barbiturates Screen NEGATIVE Ur Tricyclics Screen NEGATIVE Ur Phencyclidine Scrn NEGATIVE Ur Amphetamine Screen NEGATIVE U Methamphetamines Scrn NEGATIVE U Benzodiazepines Scrn NEGATIVE Urine Cocaine Screen NEGATIVE U Cannabinoids Screen POSITIVE H Ethyl Alcohol < 5.0 01/07/18 17:55 WBC RBC Hgb Hct MCV MCH MCHC RDW Plt Count MPV Neut # Lymph # [place] # Eos # Baso # Absolute Nucleated RBC Nucleated RBC % Sodium Potassium Chloride Carbon Dioxide Anion Gap BUN Creatinine Estimated GFR (MDRD) Glucose Calcium Total Bilirubin AST ALT Alkaline Phosphatase Total Protein Albumin Globulin Albumin/Globulin Ratio Lipase TSH 1.37 Urine Color Urine Clarity Urine pH Ur Specific [place] Urine Protein Urine Glucose (UA) Urine Ketones Urine Occult Blood Urine Nitrite Urine Bilirubin Urine Urobilinogen Ur Leukocyte Esterase Ur Microscopic Review Urine Culture Comments Salicylates Urine Opiates Screen Ur Oxycodone Screen Urine Methadone Screen Ur Propoxyphene Screen Acetaminophen Ur Barbiturates Screen Ur Tricyclics Screen Ur Phencyclidine Scrn Ur Amphetamine Screen U Methamphetamines Scrn U Benzodiazepines Scrn Urine Cocaine Screen U Cannabinoids Screen Ethyl Alcohol PD MEDICAL DECISION MAKING - ED course Complexity details: reviewed results, considered differential (She has moments of clarity but generally is having such loose associations and tangential thinking, and is not really able to answer clearly about functional details of getting to a longterm and getting food, that I feel that she is not able to take care of herself right now due to psychiatric process. ), d/w patient, d/w content management consultant ([facility] who feels that she is disabled and needs treatment. ) Departure - Departure Clinical Impression: Affective psychosis, [place] disability Condition: Stable Record reviewed to determine appropriate education?: Yes
[2018-01-07] MEDS ORDERED: OLANZapine ODT 5 MG TABLET TL STA (17:40)
[2018-01-07 18:00] LABS: MUDS CUTOFF CONCENTRATIONS CUTOFF CONC BELOW:
[2018-01-07 18:02] LABS: BASOPHILS % (AUTO) 0.6 %; EOSINOPHILS % (AUTO) 0.2 %; HGB - HEMOGLOBIN 15.6 g/dL (12.0-16.0); LYMPHOCYTES # (AUTO) 1.1 10^3/uL (1.5-3.5); LYMPHOCYTES % (AUTO) 25.6 %; MEAN CORPUSCULAR HEMOGLOBIN 32.1 pg (27.0-31.0); MEAN CORPUSCULAR HGB CONC 34.6 g/dL (32.0-36.0); MEAN CORPUSCULAR VOLUME 92.9 fL (81.0-99.0); MEAN PLATELET VOLUME 6.8 fL (7.9-10.8); MONOCYTES # (AUTO) 0.4 10^3/uL (0.0-1.0); MONOCYTES % (AUTO) 10.4 %; NEUTROPHILS # (AUTO) 2.6 10^3/uL (1.5-6.6); NEUTROPHILS % (AUTO) 63.2 %; PLT - PLATELET COUNT 178 10^3/uL (130-450); RED BLOOD COUNT 4.87 10^6/uL (4.20-5.40); RED CELL DISTRIBUTION WIDTH 12.9 % (12.0-15.0); WHITE BLOOD COUNT 4.2 x10^3/uL (4.8-10.8)
[2018-01-07 18:05] LABS: BILIRUBIN,URINE NEGATIVE (NEGATIVE); GLUCOSE, URINE (UA) NEGATIVE (NEGATIVE); KETONES,URINE (UA) NEGATIVE (NEGATIVE); LEUKOCYTE ESTERASE, URINE NEGATIVE (NEGATIVE); NITRITE,URINE NEGATIVE (NEGATIVE); OCCULT BLOOD,URINE NEGATIVE (NEGATIVE); PROTEIN,URINE NEGATIVE (NEGATIVE); UROBILINOGEN,URINE 0.2 (NORMAL) E.U./dL (NORMAL)
[2018-01-07 18:07] LABS: CLARITY,URINE CLEAR (CLEAR)
[2018-01-07 18:17] LABS: ALBUMIN 4.3 g/dL (3.2-5.5); ALBUMIN/GLOBULIN RATIO 1.2 (1.0-2.2); ALKALINE PHOSPHATASE 102 IU/L (42-121); ALT ALANINE AMINOTRANSFERASE 44 IU/L (10-60); AST ASPARTATE AMINOTRANSFERASE 40 IU/L (10-42); BILIRUBIN,TOTAL 0.4 mg/dL (0.2-1.0); BUN - BLOOD UREA NITROGEN 13 mg/dL (6-20); CALCIUM 9.2 mg/dL (8.5-10.3); CARBON DIOXIDE - CO2 27 mmol/L (21-32); CHLORIDE 95 mmol/L (101-111); CREATININE 0.6 mg/dL (0.4-1.0); GFR - MDRD 103 (>89); GLUCOSE 125 mg/dL (70-100); LIPASE 17 U/L (22-51); SALICYLATE < 6.0 mg/dL; SODIUM 131 mmol/L (135-145); TOTAL PROTEIN 7.9 g/dL (6.7-8.2)
[2018-01-07 18:23] LABS: COCAINE SCREEN URINE NEGATIVE (NEGATIVE); METHAMPHETAMINES SCREEN, URINE NEGATIVE (NEGATIVE)
[2018-01-07 18:24] LABS: AMPHETAMINE SCREEN,URINE NEGATIVE (NEGATIVE); BENZODIAZEPINES SCREEN, URINE NEGATIVE (NEGATIVE); METHADONE SCREEN, URINE NEGATIVE (NEGATIVE); OPIATE SCREEN, URINE NEGATIVE (NEGATIVE); OXYCODONE SCREEN, URINE NEGATIVE (NEGATIVE); PROPOXYPHENE SCREEN, URINE NEGATIVE (NEGATIVE); TRICYCLIC ANTIDEPRESSANT,URINE NEGATIVE (NEGATIVE)
[2018-01-07 18:27] LABS: ACETAMINOPHEN < 10 ug/mL (10-30)
[2018-01-08] MEDS ORDERED: ACETAMINOPHEN 325 MG TABLET PO STA (06:57)
[2018-01-08] MEDS ORDERED: OLANZapine ODT 5 MG TABLET TL ONE (07:26)
[2018-01-08 07:27] VITALS: BP 114/68
== END 2018-01-08 08:30 ==
LOC: EDUNIT# → ED 16:34
DX: F39 Unspecified mood [affective] disorder (principal); F17.200 Nicotine dependence, unspecified, uncomplicated
CPT/HCPCS: 36415; 80053; 80306; 80307; 80320; 80329; 81003; 83690; 84443; 85025; 93005; 99283; 99285; A9270; 81001; 87086; 99284

== ENCOUNTER 2018-01-08 08:30 | Outpatient (CLI) | payer OTHER, MEDICAID | END 2018-01-08 08:31 | LOC: EMS 08:30 | PROVIDERS: ATTEND Surgery | DX: F29 Unspecified psychosis not due to a substance or known physiological condition (principal) | CPT/HCPCS: A0170; A0425; A0428 ==

== ENCOUNTER 2018-03-07 09:58 | Outpatient (CLI) | payer OTHER, MEDICAID ==
[2018-03-07 10:43] LABS: ALT ALANINE AMINOTRANSFERASE 126 IU/L (10-60); AST ASPARTATE AMINOTRANSFERASE 77 IU/L (10-42)
== END 2018-03-07 09:59 | disposition home or self-care (01) ==
LOC: LAB 09:58
PROVIDERS: ATTEND Nurse Practitioner Psychiatric/Mental Health
DX: F20.9 Schizophrenia, unspecified (principal)
CPT/HCPCS: 36415; 84450; 84460